=== PATIENT | female | born 1955 | race Caucasian/White ===

== ENCOUNTER → 2020-08-04 | Outpatient (CLI) ==
[~2020-08-04] MED LIST: ALBU8.5H; AZEL1SPR3; CETI-24; FLUTISP; LEXA1TAB; MESA0.37 PO; SYMB16INH
== END ==
LOC: M LABSMTC 10:55 → EDUNIT# 11:15
PROVIDERS: ATTEND Anesthesiology
DX: Z11.52 Encounter for screening for COVID-19 (principal)

== ENCOUNTER 2020-09-26 09:20 | Day surgery (SDC) | payer MEDICARE ==
[~2020-09-26] VITALS: Ht 165.1 cm; Wt 7.3 kg
[~2020-09-26 09:20] MED LIST changes: +LIDOCAINE 2% 100MG/5ML SDV (FOR ANES.) As Ordered ONE; +NS 1,000 ML IV ONE; +propofoL 200 MG/20 ML VIAL As Ordered ONE
--- NOTE | 2020-09-26 11:21 | ROOR ---
Patient Name: Dionne Blankenship Procedure Date: 09/26/2020 10:39 AM Date of : 1955 Age: 65 Room: [facility] Gender: Female Note Status: Finalized Procedure: Colonoscopy Indications: High risk colon cancer surveillance: Ulcerative pancolitis of 8 (or more) years duration Providers: Nasir Patel MD Referring MD: Taco Gibbons DO Requesting Provider: Medicines: Monitored Anesthesia Care Complications: No immediate complications. Procedure: Pre-Anesthesia Assessment: - Prior to the procedure, a History and Physical was performed, and patient medications and allergies were reviewed. The patient is competent. The risks and benefits of the procedure and the sedation options and risks were discussed with the patient. All questions were answered and informed consent was obtained. Patient identification and proposed procedure were verified by the physician, the nurse and the anesthesiologist in the procedure room. Mental Status Examination: alert and oriented. Airway Examination: normal oropharyngeal airway and neck mobility. Respiratory Examination: clear to auscultation. CV Examination: normal. Prophylactic Antibiotics: The patient does not require prophylactic antibiotics. Prior Anticoagulants: The patient has taken no previous anticoagulant or antiplatelet agents. ASA Grade Assessment: II - A patient with mild systemic disease. After reviewing the risks and benefits, the patient was deemed in satisfactory condition to undergo the procedure. The anesthesia plan was to use monitored anesthesia care (MAC). Immediately prior to administration of medications, the patient was re-assessed for adequacy to receive sedatives. The heart rate, respiratory rate, oxygen saturations, blood pressure, adequacy of pulmonary ventilation, and response to care were monitored throughout the procedure. The physical status of the patient was re-assessed after the procedure. The Colonoscope was introduced through the anus and advanced to the terminal ileum, with identification of the appendiceal orifice and IC valve. The colonoscopy was performed without difficulty. The patient tolerated the procedure well. The quality of the bowel preparation was good. The terminal ileum, ileocecal valve, appendiceal orifice, and rectum were photographed. Scope insertion time was 2 minutes. Scope withdrawal time was 8 minutes. The total duration of the procedure was 12 minutes. Findings: The perianal and digital rectal examinations were normal. The terminal ileum appeared normal. Normal mucosa was found in the entire colon. Biopsies for histology were taken with a cold forceps from the right colon, left colon and rectosigmoid colon for evaluation of microscopic colitis. Verification of patient identification for the specimen was done by the physician and nurse using the patient's name, date and medical record number. Estimated blood loss was minimal. Patchy mild inflammation characterized by erythema and granularity was found at the ileocecal valve. Biopsies were taken with a cold forceps for histology. Scattered medium-mouthed diverticula were found in the sigmoid colon and ascending colon. There was no evidence of diverticular bleeding. Non-bleeding external and internal hemorrhoids were found during retroflexion. The hemorrhoids were medium-sized. Impression: - The examined portion of the ileum was normal. - Normal mucosa in the entire examined colon. Biopsied. - Patchy mild inflammation was found at the ileocecal valve. Biopsied. - Mild diverticulosis in the sigmoid colon and in the ascending colon. There was no evidence of diverticular bleeding. - Non-bleeding external and internal hemorrhoids. Recommendation: - Patient has a contact number available for emergencies. The signs and symptoms of potential delayed complications were discussed with the patient. Return to normal activities tomorrow. Written discharge instructions were provided to the patient. - High fiber diet. - Continue present medications. - Await pathology results. - Use fiber, for example Citrucel, Fibercon, Konsyl or Metamucil. - Repeat colonoscopy in 3 - 5 years for surveillance. - Telephone GI clinic for pathology results in 2 weeks. - Return to GI clinic if persistent symptoms or new symptoms. - Return to primary care physician. Procedure Code(s): --- Professional --- 59810, Colonoscopy, flexible; with biopsy, single or multiple Diagnosis Code(s): --- Professional --- K51.00, Ulcerative (chronic) pancolitis without complications K64.8, Other hemorrhoids K52.9, Noninfective gastroenteritis and colitis, unspecified K57.30, Diverticulosis of large intestine without perforation or abscess without bleeding CPT copyright 2019 [employer]. All rights reserved. The codes documented in this report are preliminary and upon table filler review may be revised to meet current compliance requirements. Nasir Patel MD Nasir Patel MD 09/26/2020 11:21:17 AM Electronically signed by Nasir Patel MD Number of Addenda: 0 Note Initiated On: 09/26/2020 10:39 AM Estimated Blood Loss: Estimated blood loss was minimal.
[2020-09-26 11:42] VITALS: BP 144/91
== END 2020-09-26 11:43 | disposition home or self-care (01) ==
LOC: M OPP 09:20
PROVIDERS: ATTEND Internal Medicine Gastroenterology
DX: K52.9 Noninfective gastroenteritis and colitis, unspecified (principal); K57.30 Diverticulosis of large intestine without perforation or abscess without bleeding; K64.8 Other hemorrhoids; K51.00 Ulcerative (chronic) pancolitis without complications; Z88.2 Allergy status to sulfonamides

== ENCOUNTER → 2021-12-11 | Outpatient (CLI) | payer MEDICARE ==
[~2021-12-11] MED LIST changes: +GLUCAGON INJ 1MG VIAL As Ordered ONE; +ISOVUE-370 76% 100ML VIAL As Ordered ONE; -LIDOCAINE 2% 100MG/5ML SDV (FOR ANES.) As Ordered ONE; +NEULUMEX 0.1% SUSPENSION 450ML BOTTLE (FORMERLY VOLUMEN) As Ordered ONE; -NS 1,000 ML IV ONE; -propofoL 200 MG/20 ML VIAL As Ordered ONE
== END ==
LOC: M RAD 09:28
PROVIDERS: ATTEND Internal Medicine Gastroenterology
DX: K51.00 Ulcerative (chronic) pancolitis without complications (principal)
CPT/HCPCS: 74177; J1610; Q9967

== ENCOUNTER → 2021-12-20 | Outpatient (CLI) | payer MEDICARE ==
[~2021-12-20] MED LIST changes: -GLUCAGON INJ 1MG VIAL As Ordered ONE; -ISOVUE-370 76% 100ML VIAL As Ordered ONE; -NEULUMEX 0.1% SUSPENSION 450ML BOTTLE (FORMERLY VOLUMEN) As Ordered ONE; +OMEP-173; +TRAM50TA2
== END ==
LOC: M LABSMTC 11:37
PROVIDERS: ATTEND Anesthesiology
DX: Z01.812 Encounter for preprocedural laboratory examination (principal); Z11.52 Encounter for screening for COVID-19

== ENCOUNTER 2021-12-25 07:22 | Day surgery (SDC) | payer MEDICARE ==
[~2021-12-25] VITALS: Ht 167.6 cm; Wt 73.8 kg
[~2021-12-25 07:22] MED LIST changes: +NS 1,000 ML IV ONE
[2021-12-25] MEDS ORDERED: LIDOCAINE 2% 100MG/5ML SDV (FOR ANES.) As Ordered ONE (07:36)
[2021-12-25] MEDS ORDERED: propofoL 200 MG/20 ML VIAL As Ordered ONE (07:36)
[2021-12-25] MEDS ORDERED: MIDAZOLAM INJ 2MG/2ML VIAL (J2250 PER 1MG) As Ordered ONE (07:36)
[2021-12-25 09:15] VITALS: BP 160/88
== END 2021-12-25 09:23 | disposition home or self-care (01) ==
LOC: M OPP 07:22
PROVIDERS: ATTEND Internal Medicine Gastroenterology
DX: K57.30 Diverticulosis of large intestine without perforation or abscess without bleeding (principal); K64.4 Residual hemorrhoidal skin tags; K64.8 Other hemorrhoids; K51.90 Ulcerative colitis, unspecified, without complications; Z79.891 Long term (current) use of opiate analgesic; Z79.899 Other long term (current) drug therapy; Z79.51 Long term (current) use of inhaled steroids; Z88.2 Allergy status to sulfonamides; F32.9 Major depressive disorder, single episode, unspecified; F41.9 Anxiety disorder, unspecified; M19.90 Unspecified osteoarthritis, unspecified site
CPT/HCPCS: 45380; 88305; J2250